=== PATIENT | female | born 1930 | race Caucasian/White ===

== ENCOUNTER 2016-07-24 12:33 | Outpatient (CLI) | payer OTHER | END 2016-07-24 23:00 | LOC: LAB SRH 12:33 | DX: I48.91 Unspecified atrial fibrillation (principal) | CPT/HCPCS: 90074; 94060 ==

== ENCOUNTER 2016-08-21 10:56 | Outpatient (CLI) | payer OTHER | END 2016-08-21 23:00 | LOC: LAB SRH 10:56 | DX: Z51.81 Encounter for therapeutic drug level monitoring (principal); Z79.01 Long term (current) use of anticoagulants; I48.91 Unspecified atrial fibrillation | CPT/HCPCS: 90074; 94060 ==

== ENCOUNTER 2016-10-16 10:58 | Outpatient (CLI) | payer OTHER | END 2016-10-16 23:00 | LOC: LAB SRH 10:58 | DX: I48.91 Unspecified atrial fibrillation (principal) | CPT/HCPCS: 90074; 94060 ==

== ENCOUNTER 2017-01-28 09:32 | Outpatient (CLI) | payer OTHER | END 2017-01-28 23:00 | LOC: LAB SRH 09:32 | DX: Z51.81 Encounter for therapeutic drug level monitoring (principal); Z79.01 Long term (current) use of anticoagulants; I48.91 Unspecified atrial fibrillation | CPT/HCPCS: 90074; 94060 ==